=== PATIENT | male | born 1995 ===

== ENCOUNTER 2017-04-25 19:26 | Emergency (ER) | payer OTHER ==
[~2017-04-25] VITALS: Ht 180.3 cm; Wt 83.9 kg
[2017-04-25 21:22] VITALS: BP 125/77
== END 2017-04-25 21:22 | disposition home or self-care (01) ==
LOC: ED 19:26
DX: S61.011A Laceration without foreign body of right thumb without damage to nail, initial encounter (principal); S61.411A Laceration without foreign body of right hand, initial encounter; S51.811A Laceration without foreign body of right forearm, initial encounter; J45.909 Unspecified asthma, uncomplicated; W25.XXXA Contact with sharp glass, initial encounter; Y93.89 Activity, other specified; Y99.8 Other external cause status; Y92.89 Other specified places as the place of occurrence of the external cause
CPT/HCPCS: J3490; Q0092

== ENCOUNTER 2017-04-27 19:48 | Emergency (ER) | payer OTHER ==
[2017-04-27 21:41] VITALS: BP 130/88
== END 2017-04-27 21:41 | disposition home or self-care (01) ==
LOC: ED 19:48
DX: S41.111D Laceration without foreign body of right upper arm, subsequent encounter (principal); X58.XXXD Exposure to other specified factors, subsequent encounter; Y99.8 Other external cause status; Y92.89 Other specified places as the place of occurrence of the external cause